=== PATIENT | female | born 2000 | race Caucasian/White ===

== ENCOUNTER 2019-08-16 15:52 | Outpatient (CLI) | payer BC ==
--- NOTE | 2019-08-16 18:24 | ULT ---
LEFT BREAST ULTRASOUND: 08/16/19 HISTORY: Patient reports a palpable abnormality at doctor's office although is unable to localize at this time . Real time imaging of the left breast was performed from the 6 to 12 o'clock position fails to show an y suspicious mass. IMPRESSION: Unremarkable left breast ultrasound. POS: [facility]
== END 2019-08-16 15:53 | disposition home or self-care (01) ==
LOC: BICULT 15:52
PROVIDERS: ATTEND Advanced Practice Midwife
DX: N63.20 Unspecified lump in the left breast, unspecified quadrant (principal)